=== PATIENT | female | born 1940 | race Caucasian/White ===

== ENCOUNTER 2016-08-13 14:25 | Observation (INO) | payer MEDICARE, BC ==
[~2016-08-13] VITALS: Ht 157.5 cm; Wt 71.1 kg
[2016-08-13] MEDS ORDERED: ONDANSETRON 4 MG INJ IV PRN (15:00)
--- NOTE | 2016-08-13 15:23 | HP ---
Date/Time of Note Date/Time of Note DATE: 08/13/16 TIME: 15:08 Assessment/Plan VTE Prophylaxis VTE Prophylaxis Intervention: ambulation, anti-embolic stocking VTE Contraindication Reason: refusal of treatment by patient Lines/Catheters Central line still needed: No Urinary Cath still in place: No Reason Cath still needed: other (indicate) (uti with difficulty to hold a urine.) Assessment/Plan Assessment/Plan 1.Dehydration 2.Diarrhea 3.Pancreatitis 4.nausea 5.Vomiting 6.Pancreatitis 7.Tachycardia 8.Dizziness 9.ALOC on and off 10.S/P recent travel to [facility] 11.Infected gingiva with no treatment and no dental work for now 12.UTI with Urinary incontinence 13.Very yellowish colored stool 14.S/P IV hydration at home with mild improvement of condition' 15.Dyslipidemia 16.PORTIA with pain 17. Osteoporosis with kyphosis 18.Anemia of chronic disease Cont'd Hospitalization Reason: as above. HPI/ROS Admit Date/Time Admit Date/Time Hx of Present Illness Nausea, vomiting with f/c x 6-7 days partial improvement after iv hydration at home. LAST 2 DAYS DIARRHEA GOT WORSE. Unable to eat. Unable to get up due to of dizziness. becoming more sleepy. Severe weaknes s with inablity to get up without help. IV's at home helped. Last 2 days got worse. Seen and evaluated in ER and organized direct admission. Discussed with the family at least 2 days of in hospital evaluation and Rx. ROS Subjective hx not possible: pt critical Constitutional: chills, disoriented, fatigue, nausea, poor po, weight change ( lost 4 lb.) Eyes: No discharge, No no complaints, No other, No pain, No redness, No visual change ENT: No bleeding, No congestion, No discharge, No dysphagia, No no complaints, No other, No pain, No sore throat Respiratory: cough, shortness of breath, No no complaints, No other, No pain, No pleuritic pain, No sputum, No wheezing Cardiovascular: lightheadedness, orthopenea, palpitations, No chest pain, No edema, No no complaints, No other, No paroxysmal nocturnal dyspnea Gastrointestinal: diarrhea, flatus, nausea, pain, passing stool (yellowish stool last 2 days.), vomiting Genitourinary: No bleeding, No discharge, No dysuria, No flank pain, No hematuria, No no complaints, No other Musculoskeletal: back pain, bone/joint pain, No neck pain, No no complaints, No other, No restricted range of motion, No swelling Skin: other (dry.), pruritis, No bruising, No erythema, No laceration, No no complaints, No rash, No skin lesions Neurologic: dizziness, headache, syncope (near syncopal epizodes.) Endocrine: dry skin, polydypsia, polyuria, temp intolerance (can't take po hilario fluids due to of nausea and vomiting.), No no complaints, No other, No weight change Lymphatic: No adenopathy, No lymphadema, No no complaints, No other, No tender nodes Psychological: anxiety, confusion (on and off.) Immunologic: pruritis PMH/Family/Social Past Medical History Medical History: angina, congestive heart failure, coronary artery disease, GERD, high cholesterol, hypertension, irritable bowel syndrome, pancreatitis, urinary tract infection Family History Significant Family History: heart disease Social History Alcohol Use: none Smoking Status: Current every day smoker Drug Use: none Exam/Review of Systems Exam Constitutional: alert, distress, oriented, other (weak with decreased voice and dizziness.), well developed Psych: anxiety, confusion (today after the profuse diarrhea become more sleppy.) Head: No atraumatic, No hematomas, No lacerations, No normocephalic, No other Eyes: EOMI, PERRL, nl lids, No fundi, disc, No icteric, No nl conjunctiva, No nl sclera, No other ENMT: nl nasal mucosa & septum, No intubated, No mucosa pink and moist, No nl external ears & nose, No nl lips & teeth, No other, No tympanic membranes Neck: nuchal rigidity, supple, No bruits, No jvd, No masses, No non-tender, No other, No thyromegaly Respiratory: clear to auscultation, diminished breath sounds, normal air movement, No congested cough, No crackles/rales, No intercostal retraction, No labored breathing, No other, No respirations, No tactile fremitus, No wheezing Cardiovascular: bruits, regular rate and rhythm, systolic murmur, No S3, No S4, No diastolic murmur, No edema, No gallop, No irregular rhythm, No jugular venous distention (JVD), No murmurs/extra sounds, No nl pulses, No other, No rub Gastrointestinal: bowel sounds (increased.), nl liver, spleen, tender Genitourinary - Female: other (not done.) Musculoskeletal: joint tenderness, muscle tone, muscle weakness, nl gait and stance (unstable gate. High risk for a fall.), range of motion Extremities: No calf tenderness, No clubbing, No cyanosis, No edema, No normal pulses, No other, No palpable cord, No pitting pedal edema, No tenderness Neurological: SERVICE WRITER ADVISOR II-XII intact (decreaed voice.), DTR's symmetric, confused , lethargic, numbness, No focal weakness, No nl mental status, No nl speech, No nl strength, No other, No reflexes, No unresponsive Skin: No diaphoresis, No ecchymosis, No laceration, No nl turgor, No other, No puncture, No rash or lesions Lymph: No enlarged, No nl lymph nodes, No nontender, No other MARIA E MAURO MD Aug 13, 2016 15:23
[2016-08-13 15:57] VITALS: BP 127/59; RESP 23
[2016-08-13 16:26] VITALS: Ht 157.5 cm; Wt 71.1 kg
[2016-08-13] MEDS ORDERED: SOD CHLORIDE 0.9% 500 ML IV ONE (17:00)
[2016-08-13] MEDS ORDERED: LEVOFLOXACIN 750MG/D5W (PMX) 150 ML IVPB SCH (17:00)
[2016-08-13 17:02] LABS: ADD SCAN DIFF NO
[2016-08-13 17:05] LABS: BASOPHILS % 0.3 % (0.0-2.0); EOSINOPHILS % 0.1 % (0.0-7.0); HEMATOCRIT 32.8 % (37.0-47.0); HEMOGLOBIN 10.8 g/dl (12.0-16.0); LYMPHOCYTES # 1.2 10^3/ul (0.8-2.9); MEAN CORPUSCULAR HEMOGLOBIN 30.3 pg (29.0-33.0); MEAN CORPUSCULAR HGB CONC 32.9 g/dl (32.0-37.0); MEAN CORPUSCULAR VOLUME 91.9 fl (82.0-101.0); MONOCYTES % 6.6 % (0.0-11.0); NEUTROPHIL # 12.6 10^3/ul (1.6-7.5); NEUTROPHILS % 84.4 % (39.0-77.0); PLATELET COUNT 315 10^3/UL (140-415); RED BLOOD COUNT 3.57 10^6/ul (4.20-5.40); RED CELL DISTRIBUTION WIDTH 12.7 % (11.5-14.5); WHITE BLOOD COUNT 14.9 10^3/ul (4.8-10.8)
[2016-08-13 17:31] LABS: ALANINE AMINOTRANSFERASE 28 IU/L (13-69); ALBUMIN 3.8 g/dl (3.3-4.9); ALBUMIN/GLOBULIN RATIO 1.22; ALKALINE PHOSPHATASE 104 IU/L (42-121); AMYLASE 52 U/L (11-123); ANION GAP 15 (8-16); ASPARTATE AMINO TRANSFERASE 20 IU/L (15-46); BILIRUBIN,INDIRECT 0.9 mg/dl (0-1.1); BILIRUBIN,TOTAL 0.9 mg/dl (0.2-1.3); BLOOD UREA NITROGEN 9 mg/dl (7-20); CALCIUM 8.9 mg/dl (8.4-10.2); CARBON DIOXIDE 30 mmol/L (21-31); CHLORIDE 99 mmol/L (97-110); CREATINE KINASE 48 IU/L (23-200); CREATININE 0.92 mg/dl (0.44-1.00); GLUCOSE 98 mg/dl (70-220); MAGNESIUM 1.7 mg/dl (1.7-2.5); POTASSIUM 3.5 mmol/L (3.5-5.1); SODIUM 140 mmol/L (135-144); TOTAL PROTEIN 6.9 g/dl (6.1-8.1)
[2016-08-13 17:32] LABS: IRON 13 ug/dl (35-150)
[2016-08-13 17:40] LABS: CK-MB 1.31 ng/ml (0.0-2.4)
[2016-08-13 17:41] LABS: TOTAL IRON BINDING CAPACITY 187 ug/dl (241-421)
--- NOTE | 2016-08-13 17:42 | RADRPT ---
PROCEDURE: XR Chest. CLINICAL INDICATION: Cough. TECHNIQUE: Single frontal view. COMPARISON: No prior study is available for comparison. FINDINGS: The lungs are clear. The heart size is normal. There is calcification in the aorta consistent with atherosclerosis. There is no pleural effusion. There is no pneumothorax. IMPRESSION: 1. Atherosclerosis. 2. Otherwise normal chest x-ray. RPTAT: QQ .Erwin Pritchard MD, MD Date Time Electronically viewed and signed by .Erwin Pritchard MD, MD on 08/13/2016 17:42 .R/
[2016-08-13] MEDS: PANTOPRAZOLE 40 MG INJ IV SCH (17:43)
[2016-08-13 17:47] LABS: TROPONIN-I < 0.012 ng/ml (0.00-0.12)
[2016-08-13 18:43] LABS: ADD UMIC YES; UR ASCORBIC ACID NEGATIVE (NEGATIVE); UR BACTERIA MODERATE /HPF (NONE SEEN); UR BILIRUBIN (Dip) NEGATIVE (NEGATIVE); UR BLOOD (Dip) 2+ mg/dL (NEGATIVE); UR CLARITY SLIGHTLY CLOUDY (CLEAR); UR COLOR YELLOW (YELLOW); UR GLUCOSE (Dip) NEGATIVE (NEGATIVE); UR KETONES (Dip) 1+ mg/dL (NEGATIVE); UR LEUKOCYTE ESTERASE (Dip) 2+ Leu/ul (NEGATIVE); UR MUCUS FEW /HPF (NONE SEEN); UR NITRITE (Dip) POSITIVE (NEGATIVE); UR RBC 34 /HPF (0-5); UR SPECIFIC GRAVITY (Dip) 1.011 (1.003-1.030); UR TOTAL PROTEIN (Dip) 1+ mg/dl (NEGATIVE); UR UROBILINOGEN (Dip) NEGATIVE (NEGATIVE)
[2016-08-13] MEDS ORDERED: TRAM50TA2 PO (18:58)
[2016-08-13] MEDS ORDERED: ALEN5TAB3 PO (18:59)
[2016-08-13] MEDS ORDERED: ATOR10TA65 PO (18:59)
[2016-08-13] MEDS ORDERED: LEVO300T PO (19:00)
[2016-08-13] MEDS ORDERED: ERGO400T4 PO (19:03)
[2016-08-13] MEDS ORDERED: AMLO1CAP8 PO (19:03)
[2016-08-13] MEDS ORDERED: FOLI0.8C PO (19:03)
[2016-08-13] MEDS ORDERED: MELO-109 PO (19:03)
--- NOTE | 2016-08-13 20:16 | RADRPT ---
PROCEDURE: CT Abdomen and Pelvis without contrast. CLINICAL INDICATION: Abdominal pain TECHNIQUE: CT scan of the abdomen and pelvis without contrast was performed on a multidetector hig h-resolution CT scanner. The patient was scanned without intravenous contrast. Coronal and sagittal reformatted images were obtained from the axial source images. Images were reviewed on a high-resol Jelastic PACS workstation. The total exam CTDI equals 13.65 mGy and the total exam DLP equals 689.11 mG y-cm. One or more of the following dose reduction techniques were used: Automated exposure control. Adjustment of the mA and/or kV according to patient size. Use of iterative reconstruction technique. COMPARISON: None FINDINGS: CT abdomen: The lung bases are clear. The heart size is normal, without pericardial thickening or effusion. Th e liver is normal in size and density without focal mass or intrahepatic biliary dilatation. The sp tigre is normal in size and homogeneous in density. The stomach is partially collapsed, but is gross ly unremarkable. The pancreas as visualized is normal. The gallbladder is remarkable for large rickey cified gallstones. There is no evidence for biliary dilatation. The adrenal glands are symmetric an d normal. The kidneys are normal in size. Symmetric perinephric fatty stranding is identified. The re is no urolithiasis. There are a few left parapelvic hypodense structures likely representing para pelvic cyst versus mild hydronephrosis. The aorta is of normal caliber. Aortic vascular calcifications are present. There is no retroperit bah lymphadenopathy. The mohsen hepatis region is clear. The bowel and mesentery, as visualized, are equally unremarkable. There is a small fat containing periumbilical hernia. CT pelvis: The small bowel loops situated within the pelvis are unremarkable. There is a normal appendix. The p elvic organs are normal. The pelvic sidewalls and inguinal regions are clear. The sigmoid colon an d rectum are unremarkable. No mass, lymphadenopathy, or free fluid is seen. No acute inflammation is seen. The surrounding osseous structures are remarkable for degenerative spondylosis of the spin e. No osteolytic or osteoblastic lesion is detected. IMPRESSION: The study is slightly limited due to significant motion artifacts. 1. No mass, lymphadenopathy, or focal acute inflammatory process is identified. 2. Cholelithiasis without evidence of acute cholecystitis. 3. Normal appendix. 4. Nonspecific bilateral perinephric fatty stranding. No urolithiasis. 5. Left parapelvic cyst versus mild left hydronephrosis. Ultrasound or CT urogram would be useful f or further evaluation. 6. Small fat containing periumbilical hernia. RPTAT: HHO .Angy Rg MD, Date Time Electronically viewed and signed by .Angy Rg MD, on 08/13/2016 20:16 .O/
[2016-08-13 20:26] VITALS: BP 131/65; RESP 20
[2016-08-14 02:01] VITALS: BP 107/54; RESP 20
[2016-08-14 07:59] VITALS: BP 119/57; RESP 21
--- NOTE | 2016-08-14 08:26 | PN ---
Date/Time of Note Date/Time of Note DATE: 08/14/16 TIME: 08:19 Assessment/Plan VTE Prophylaxis VTE Prophylaxis Intervention: ambulation, anti-embolic stocking VTE Contraindication Reason: peripheral vascular disease Lines/Catheters IV Catheter Type (from Nrs): Saline Lock Central line still needed: No Urinary Cath still in place: No Assessment/Plan Assessment/Plan Cholelithiasis umbilical hernia parapelvic cyst on the left on CT of the pelvis. Very low iron and low NG- supplement. Subjective 24 Hr Interval Summary Free Text/Dictation I feel better but still I am weak and i had 1 more episode of diarrhea. No nausea. Constitutional: chills, diaphoresis, improved, poor po, requiring IVF, requiring O2, No disoriented, No febrile, No no complaints, No other Eyes: No discharge, No no complaints, No other, No pain, No redness, No visual change ENT: No bleeding, No congestion, No discharge, No dysphagia, No no complaints, No other, No pain, No sore throat Respiratory: cough, shortness of breath, No no complaints, No other, No pain, No pleuritic pain, No sputum, No wheezing Cardiovascular: lightheadedness, palpitations, No chest pain, No edema, No no complaints, No orthopenea, No other, No paroxysmal nocturnal dyspnea Gastrointestinal: diarrhea, flatus, nausea, pain, passing stool, vomiting, No blood, No constipation, No decreased appetite, No no complaints, No other Genitourinary: dysuria, No bleeding, No discharge, No flank pain, No hematuria, No no complaints, No other Musculoskeletal: back pain, bone/joint pain Exam/Review of Systems Vital Signs Vitals Vital Signs Date Time Temp Pulse Resp B/P Pulse Ox O2 Delivery O2 Flow Rate FiO2 08/14/16 07:59 98.4 75 21 119/57 94 Intake and Output 08/13/16 08/13/16 08/14/16 15:00 23:00 07:00 Intake Total 650 ml 600 ml Balance 650 ml 600 ml Exam Constitutional: alert, distress, frail, oriented, No non-verbal, No obese, No other, No well developed Psych: anxiety, confusion, depression, No nl mood/affect, No no complaints, No other, No suicidal Head: atraumatic, normocephalic, No hematomas, No lacerations, No other Eyes: EOMI, PERRL (pale conjunctivas.) Neck: bruits, nuchal rigidity, No jvd, No masses, No non-tender, No other, No supple, No thyromegaly Respiratory: diminished breath sounds, normal air movement, No clear to auscultation, No congested cough, No crackles/rales, No intercostal retraction, No labored breathing, No other, No respirations, No tactile fremitus, No wheezing Cardiovascular: bruits, murmurs/extra sounds, regular rate and rhythm, systolic murmur, No S3, No S4, No diastolic murmur, No edema, No gallop, No irregular rhythm, No jugular venous distention (JVD), No nl pulses, No other, No rub Gastrointestinal: bowel sounds (increased; periumbilical hernia.), distended , rebound or guarding, tender, No ascites, No firm, No hepatomegaly, No mass, No nl liver, spleen, No non- tender, No other, No soft, No splenomegaly, No surgical scars Genitourinary - Female: CVA tenderness, No CMT, No nl adnexae, No nl external genitalia, No other, No uterus Musculoskeletal: joint tenderness, muscle tone, muscle weakness, No nl extremities to inspection, No nl gait and stance, No other, No range of motion, No spine non-tender, No swelling 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 (decreased hearing.), DTR's symmetric, lethargic, numbness, reflexes Skin: ecchymosis, rash or lesions, No diaphoresis, No laceration, No nl turgor, No other, No puncture Results Result Diagram: 08/13/16165408/[id number] Results 24 hrs Laboratory Tests Test 08/13/16 16:55 08/13/16 18:00 White Blood Count 14.9 H Red Blood Count 3.57 L Hemoglobin 10.8 L Hematocrit 32.8 L Mean Corpuscular Volume 91.9 Mean Corpuscular Hemoglobin 30.3 Mean Corpuscular Hemoglobin Concent 32.9 Red Cell Distribution Width 12.7 Platelet Count 315 Mean Platelet Volume 10.0 Neutrophils % 84.4 H Lymphocytes % 8.0 L Monocytes % 6.6 Eosinophils % 0.1 Basophils % 0.3 Nucleated Red Blood Cells % 0.0 Neutrophils # 12.6 H Lymphocytes # 1.2 Monocytes # 1.0 H Eosinophils # 0.0 Basophils # 0.0 Nucleated Red Blood Cells # 0.0 Sodium Level 140 Potassium Level 3.5 Chloride Level 99 Carbon Dioxide Level 30 Anion Gap 15 Blood Urea Nitrogen 9 Creatinine 0.92 Glucose Level 98 Calcium Level 8.9 Magnesium Level 1.7 Iron Level 13 L Total Iron Binding Capacity 187 L Percent Iron Saturation 7 L Total Bilirubin 0.9 Direct Bilirubin 0.00 Indirect Bilirubin 0.9 Aspartate Amino Transf (AST/SGOT) 20 Alanine Aminotransferase (ALT/SGPT) 28 Alkaline Phosphatase 104 Creatine Kinase 48 Creatine Kinase Index 2.7 Creatinine Kinase MB (Mass) 1.31 Troponin I < 0.012 Total Protein 6.9 Albumin 3.8 Globulin 3.10 Albumin/Globulin Ratio 1.22 Amylase Level 52 Lipase 27 Urine Color YELLOW Urine Clarity SLIGHTLY CLOUDY A Urine pH 6.0 Urine Specific [place] 1.011 Urine Ketones 1+ H Urine Nitrite POSITIVE A Urine Bilirubin NEGATIVE Urine Urobilinogen NEGATIVE Urine Leukocyte Esterase 2+ H Urine Microscopic RBC 34 H Urine Microscopic WBC 168 H Urine Bacteria MODERATE Urine Mucus FEW A Urine Hemoglobin 2+ H Urine Glucose NEGATIVE Urine Total Protein 1+ H Medications Medications Current Medications Pantoprazole (Protonix Iv) 40 mg DAILY IV Last administered on 08/13/16t 17:43; Admin Dose 40 MG; Start 08/13/16 at 17:00 Ondansetron HCl 4 mg 4 mg Q6H PRN IV NAUSEA AND/OR VOMITING; Start 08/13/16 at 15:00 Levofloxacin/ Dextrose (Levaquin 750 Mg/ D5W 150 ml (Pmx)) 150 ml @ 100 mls/hr Q48H IVPB ; Start 08/15/16 at 18:00 MARIA E MAURO MD Aug 14, 2016 08:25
[2016-08-14] MEDS ORDERED: MAGNESIUM SULFATE 2 GM/50 ML 50 ML IVPB SCH (08:30)
[2016-08-14] MEDS: SOD FERRIC GLUC COMPLX 125 MG in SOD CHLORIDE 0.9% 100 ML IVPB SCH (08:30)
[2016-08-14] MEDS ORDERED: POTASSIUM CHLORIDE 50 ML IVPB ONE (08:30)
[2016-08-14] MEDS: PANTOPRAZOLE 40 MG INJ IV SCH (09:00)
--- NOTE | 2016-08-14 13:47 | RADRPT ---
Vent Rate: 75 bpm RR Interval: 0 msec UT Interval: 142 msec QRS Duration: 82 msec QT Interval: 380 msec QTC Interval: 424 msec P-R-T [place]: 42 - 53 - 60 degrees Normal sinus rhythm Cannot rule out Anterior infarct , age undetermined Abnormal ECG Electronically Signed By: Kamron Mendez [id number]
[2016-08-14 21:26] VITALS: BP 114/57; RESP 16
[2016-08-15 03:07] VITALS: BP 126/59; RESP 18
[2016-08-15 05:54] LABS: ADD SCAN DIFF NO
[2016-08-15 05:58] LABS: BASOPHILS % 0.2 % (0.0-2.0); EOSINOPHILS # 0.1 10^3/ul (0.0-0.5); HEMATOCRIT 30.7 % (37.0-47.0); HEMOGLOBIN 9.9 g/dl (12.0-16.0); LYMPHOCYTES # 1.4 10^3/ul (0.8-2.9); LYMPHOCYTES % 15.4 % (15.0-51.0); MEAN CORPUSCULAR HEMOGLOBIN 29.9 pg (29.0-33.0); MEAN CORPUSCULAR HGB CONC 32.2 g/dl (32.0-37.0); MEAN CORPUSCULAR VOLUME 92.7 fl (82.0-101.0); MEAN PLATELET VOLUME 10.2 fl (7.4-10.4); MONOCYTE # 0.8 10^3/ul (0.3-0.9); MONOCYTES % 8.4 % (0.0-11.0); NEUTROPHIL # 6.9 10^3/ul (1.6-7.5); NEUTROPHILS % 74.1 % (39.0-77.0); PLATELET COUNT 330 10^3/UL (140-415); RED BLOOD COUNT 3.31 10^6/ul (4.20-5.40); RED CELL DISTRIBUTION WIDTH 12.9 % (11.5-14.5); WHITE BLOOD COUNT 9.3 10^3/ul (4.8-10.8)
[2016-08-15 06:20] LABS: ALBUMIN 3.4 g/dl (3.3-4.9); ALBUMIN/GLOBULIN RATIO 1.17; CALCIUM 8.2 mg/dl (8.4-10.2); CREATININE 0.83 mg/dl (0.44-1.00); TOTAL PROTEIN 6.3 g/dl (6.1-8.1)
[2016-08-15 06:58] LABS: BILIRUBIN,INDIRECT 0.6 mg/dl (0-1.1); BILIRUBIN,TOTAL 0.6 mg/dl (0.2-1.3)
[2016-08-15] MEDS: PANTOPRAZOLE (EC) 40 MG TAB PO SCH (07:13)
[2016-08-15 07:56] VITALS: BP 124/61; RESP 20
--- NOTE | 2016-08-15 08:11 | PN ---
Date/Time of Note Date/Time of Note DATE: 08/15/16 TIME: 08:06 Assessment/Plan VTE Prophylaxis VTE Prophylaxis Intervention: ambulation, anti-embolic stocking Lines/Catheters IV Catheter Type (from Nrsg): Peripheral IV Central line still needed: No Urinary Cath still in place: No Assessment/Plan Assessment/Plan 1.hypokalemia- supplement. 2.Diarrhea-persists 3.Pancreatitis-lipase negative 4.nausea-controlled 5.Dehydration- Vomiting controlled 6.Pancreatitis 7.Tachycardia 8.Dizziness 9.ALOC on and off 10.S/P recent travel to [facility] 11.Infected gingiva with no treatment and no dental work for now 12.UTI with Urinary incontinence 13.Very yellowish colored stool 14.S/P IV hydration at home with mild improvement of condition' 15.Dyslipidemia 16.PORTIA with pain 17. Osteoporosis with kyphosis 18.Anemia of chronic disease Cont'd Hospitalization Reason: as above. Subjective 24 Hr Interval Summary Free Text/Dictation The first day I was able to eat little bit. I still have a diarrhea. I can't get up without help. Constitutional: chills, poor po, requiring IVF, requiring O2, No diaphoresis, No disoriented, No febrile, No improved, No no complaints, No other Eyes: No discharge, No no complaints, No other, No pain, No redness, No visual change ENT: No bleeding, No congestion, No discharge, No dysphagia, No no complaints, No other, No pain, No sore throat Respiratory: shortness of breath, No cough, No no complaints, No other, No pain, No pleuritic pain, No sputum, No wheezing Cardiovascular: lightheadedness, orthopenea, palpitations, No chest pain, No edema, No no complaints, No other, No paroxysmal nocturnal dyspnea Gastrointestinal: diarrhea, flatus, nausea, pain, passing stool Genitourinary: No bleeding, No discharge, No dysuria, No flank pain, No hematuria, No no complaints, No other Musculoskeletal: back pain, bone/joint pain, No neck pain, No no complaints, No other, No restricted range of motion, No swelling Exam/Review of Systems Vital Signs Vitals Vital Signs Date Time Temp Pulse Resp B/P Pulse Ox O2 Delivery O2 Flow Rate FiO2 08/15/16 07:56 98.3 71 20 124/61 95 Intake and Output 08/14/16 08/14/16 08/15/16 15:00 23:00 07:00 Intake Total 110 ml 890 ml 680 ml Balance 110 ml 890 ml 680 ml Exam Constitutional: alert, distress, oriented, No frail, No non-verbal, No obese, No other, No well developed Psych: anxiety, No confusion, No depression, No nl mood/affect, No no complaints, No other, No suicidal Head: No atraumatic, No hematomas, No lacerations, No normocephalic, No other Eyes: EOMI, nl lids, No PERRL, No fundi, disc, No icteric, No nl conjunctiva, No nl sclera, No other ENMT: No intubated, No mucosa pink and moist, No nl external ears & nose, No nl lips & teeth, No nl nasal mucosa & septum, No other, No tympanic membranes Neck: bruits, supple, No jvd, No masses, No non-tender, No nuchal rigidity, No other, No thyromegaly Respiratory: diminished breath sounds, No clear to auscultation, No congested cough, No crackles/rales, No intercostal retraction, No labored breathing, No normal air movement, No other, No respirations, No tactile fremitus, No wheezing Cardiovascular: bruits, systolic murmur, No S3, No S4, No diastolic murmur, No edema, No gallop, No irregular rhythm, No jugular venous distention (JVD), No murmurs/extra sounds, No nl pulses, No other, No regular rate and rhythm, No rub Gastrointestinal: bowel sounds (incrfeased.), non-tender, soft, No ascites, No distended, No firm, No hepatomegaly, No mass, No nl liver, spleen, No other, No rebound or guarding, No splenomegaly, No surgical scars, No tender Genitourinary - Female: No CMT, No CVA tenderness, No nl adnexae, No nl external genitalia, No other, No uterus Musculoskeletal: joint tenderness, muscle tone, muscle weakness Extremities: No calf tenderness, No clubbing, No cyanosis, No edema, No normal pulses, No other, No palpable cord, No pitting pedal edema, No tenderness Neurological: lethargic (severe weakness.), numbness, 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, No DTR's symmetric, No confused, No focal weakness, No nl mental status, No nl speech, No nl strength, No other, No reflexes, No unresponsive Results Result Diagram: 08/15/16 0545 08/15/16 0545 Results 24 hrs Laboratory Tests Test 08/15/16 05:45 White Blood Count 9.3 # Red Blood Count 3.31 L Hemoglobin 9.9 L Hematocrit 30.7 L Mean Corpuscular Volume 92.7 Mean Corpuscular Hemoglobin 29.9 Mean Corpuscular Hemoglobin Concent 32.2 Red Cell Distribution Width 12.9 Platelet Count 330 Mean Platelet Volume 10.2 Neutrophils % 74.1 Lymphocytes % 15.4 Monocytes % 8.4 Eosinophils % 1.0 Basophils % 0.2 Nucleated Red Blood Cells % 0.0 Neutrophils # 6.9 Lymphocytes # 1.4 Monocytes # 0.8 Eosinophils # 0.1 Basophils # 0.0 Nucleated Red Blood Cells # 0.0 Sodium Level 138 Potassium Level 3.0 L Chloride Level 100 Carbon Dioxide Level 32 H Anion Gap 9 # Blood Urea Nitrogen 11 Creatinine 0.83 Glucose Level 100 Calcium Level 8.2 L Total Bilirubin 0.6 Direct Bilirubin 0.00 Indirect Bilirubin 0.6 Aspartate Amino Transf (AST/SGOT) 16 Alanine Aminotransferase (ALT/SGPT) 30 Alkaline Phosphatase 88 Total Protein 6.3 Albumin 3.4 Globulin 2.90 Albumin/Globulin Ratio 1.17 Thyroid Stimulating Hormone (TSH) 4.340 Medications Medications Current Medications Ondansetron HCl 4 mg 4 mg Q6H PRN IV NAUSEA AND/OR VOMITING; Start 08/13/16 at 15:00 Levofloxacin/ Dextrose 150 ml @ 100 mls/hr Q48H IVPB ; Start 08/15/16 at 18:00 Ferric Sodium Gluconate Complex 125 mg/Sodium Chloride 110 ml @ 110 mls/hr Q24H IVPB Last administered on 08/14/16 08:30; Admin Dose 110 MLS/HR; Start at 08:30; Stop 08/18/16 at 09:29 Magnesium Sulfate (Magnesium Sulfate 2 Gm/50 ml) 50 ml @ 25 mls/hr ONCE IVPB Last administered on 08/14/16 13:34; Admin Dose 25 MLS/HR; Start 08/14/16 at 08 :30; Stop 08/17/16 at 09:00 Pantoprazole (Protonix Tab) 40 mg DAILY@06 PO Last administered on 08/15/16t 07 :13; Admin Dose 40 MG; Start 08/15/16 at 06:00 MARIA E MAURO MD Aug 15, 2016 08:11
[2016-08-15] MEDS: SOD FERRIC GLUC COMPLX 125 MG in SOD CHLORIDE 0.9% 100 ML IVPB SCH (09:17)
[2016-08-15] MEDS: POTASSIUM CHLORIDE 50 ML IVPB SCH ×3 (10:45→14:26)
[2016-08-15] MEDS: MAGNESIUM SULFATE 2 GM/50 ML 50 ML IVPB SCH (16:25)
[2016-08-15] MEDS ORDERED: LEVOFLOXACIN 750MG/D5W (PMX) 150 ML IVPB SCH (18:00)
[2016-08-15] MEDS: PIPER-TAZO 3.375 GM IV (PMX) 100 ML IVPB SCH (18:53)
[2016-08-15 19:49] VITALS: BP 123/62; RESP 20
[2016-08-16] MEDS: PIPER-TAZO 3.375 GM IV (PMX) 100 ML IVPB SCH ×4 (00:35→22:44)
[2016-08-16] MEDS: PANTOPRAZOLE (EC) 40 MG TAB PO SCH (06:38)
[2016-08-16 07:28] LABS: ADD SCAN DIFF NO
[2016-08-16 07:32] LABS: BASOPHILS % 0.5 % (0.0-2.0); EOSINOPHILS # 0.1 10^3/ul (0.0-0.5); EOSINOPHILS % 1.6 % (0.0-7.0); HEMATOCRIT 31.4 % (37.0-47.0); HEMOGLOBIN 10.1 g/dl (12.0-16.0); LYMPHOCYTES # 1.9 10^3/ul (0.8-2.9); LYMPHOCYTES % 21.9 % (15.0-51.0); MEAN CORPUSCULAR HEMOGLOBIN 29.8 pg (29.0-33.0); MEAN CORPUSCULAR HGB CONC 32.2 g/dl (32.0-37.0); MEAN CORPUSCULAR VOLUME 92.6 fl (82.0-101.0); MEAN PLATELET VOLUME 10.3 fl (7.4-10.4); MONOCYTE # 0.6 10^3/ul (0.3-0.9); MONOCYTES % 7.1 % (0.0-11.0); PLATELET COUNT 362 10^3/UL (140-415); RED BLOOD COUNT 3.39 10^6/ul (4.20-5.40); RED CELL DISTRIBUTION WIDTH 13.2 % (11.5-14.5); WHITE BLOOD COUNT 8.9 10^3/ul (4.8-10.8)
[2016-08-16 07:51] LABS: ALBUMIN 3.3 g/dl (3.3-4.9); ALBUMIN/GLOBULIN RATIO 1.03; BILIRUBIN,INDIRECT 0.5 mg/dl (0-1.1); BILIRUBIN,TOTAL 0.5 mg/dl (0.2-1.3); CALCIUM 8.6 mg/dl (8.4-10.2); CREATININE 0.85 mg/dl (0.44-1.00); POTASSIUM 3.3 mmol/L (3.5-5.1); TOTAL PROTEIN 6.5 g/dl (6.1-8.1)
[2016-08-16 08:11] VITALS: BP 142/60; RESP 18
[2016-08-16] MEDS ORDERED: POTASSIUM CHLORIDE (SR) 20 MEQ TAB PO STA (09:04)
--- NOTE | 2016-08-16 09:06 | PN ---
Date/Time of Note Date/Time of Note DATE: 08/16/16 TIME: 08:59 Assessment/Plan VTE Prophylaxis VTE Prophylaxis Intervention: ambulation, anti-embolic stocking VTE Contraindication Reason: peripheral vascular disease Lines/Catheters IV Catheter Type (from Nrsg): [place] line still needed: No Urinary Cath still in place: No Reason Cath still needed: urinary retention Assessment/Plan Assessment/Plan 1.hypokalemia- continue iv and p.o. supplement. 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 Subjective 24 Hr Interval Summary Free Text/Dictation No diarrhea. Very weak. Unable to stand up even with the help of the daughter. no f/c. nauseas. No vomiting. No bm. Constitutional: disoriented, improved, poor po, requiring IVF, requiring O2, No chills, No diaphoresis, No febrile, No no complaints, No other Eyes: No discharge, No no complaints, No other, No pain, No redness, No visual change ENT: No bleeding, No congestion, No discharge, No dysphagia, No no complaints, No other, No pain, No sore throat Respiratory: No cough, No no complaints, No other, No pain, No pleuritic pain, No shortness of breath, No sputum, No wheezing Cardiovascular: chest pain, lightheadedness, orthopenea, palpitations, paroxysmal nocturnal dyspnea, No edema, No no complaints, No other Gastrointestinal: nausea, No blood, No constipation, No decreased appetite, No diarrhea, No flatus, No no complaints, No other, No pain, No passing stool, No vomiting Genitourinary: dysuria, flank pain, No bleeding, No discharge, No hematuria, No no complaints, No other Musculoskeletal: back pain, bone/joint pain, neck pain, No no complaints, No other, No restricted range of motion, No swelling Neurologic: dizziness, headache Exam/Review of Systems Vital Signs Vitals Vital Signs Date Time Temp Pulse Resp B/P Pulse Ox O2 Delivery O2 Flow Rate FiO2 08/16/16 08:11 98.3 70 18 142/60 94 Intake and Output 08/15/16 08/15/16 08/16/16 15:00 23:00 07:00 Intake Total 1320 ml Balance 1320 ml Exam Constitutional: alert, distress, frail, oriented, well developed, No non-verbal, No obese, No other Psych: anxiety, confusion, depression, No nl mood/affect, No no complaints, No other, No suicidal Head: atraumatic, No hematomas, No lacerations, No normocephalic, No other Eyes: EOMI, PERRL, nl lids, No fundi, disc, No icteric, No nl conjunctiva, No nl sclera, No other ENMT: No intubated, No mucosa pink and moist, No nl external ears & nose, No nl lips & teeth, No nl nasal mucosa & septum, No other, No tympanic membranes Neck: bruits, nuchal rigidity, No jvd, No masses, No non-tender, No other, No supple, No thyromegaly Respiratory: diminished breath sounds, respirations, No clear to auscultation, No congested cough, No crackles/rales, No intercostal retraction, No labored breathing, No normal air movement, No other, No tactile fremitus, No wheezing Cardiovascular: bruits, systolic murmur, No S3, No S4, No diastolic murmur, No edema, No gallop, No irregular rhythm, No jugular venous distention (JVD), No murmurs/extra sounds, No nl pulses, No other, No regular rate and rhythm, No rub Gastrointestinal: bowel sounds, distended, nl liver, spleen, soft, No ascites, No firm, No hepatomegaly, No mass, No non-tender, No other, No rebound or guarding, No splenomegaly, No surgical scars, No tender Genitourinary - Female: CVA tenderness, No CMT, No nl adnexae, No nl external genitalia, No other, No uterus Musculoskeletal: joint tenderness, muscle tone, No muscle weakness, No nl extremities to inspection, No nl gait and stance, No other, No range of motion, No spine non-tender, No swelling Extremities: normal pulses, No calf tenderness, No clubbing, No cyanosis, No edema, No other, No palpable cord, No pitting pedal edema, No tenderness Neurological: LEAN SPECIALIST II-XII intact, lethargic, nl speech, numbness, No DTR's symmetric, No confused, No focal weakness, No nl mental status, No nl strength, No other, No reflexes, No unresponsive Skin: diaphoresis, ecchymosis Results Result Diagram: 08/16/16 0700 08/16/16 0700 Results 24 hrs Laboratory Tests Test 08/16/16 07:00 White Blood Count 8.9 Red Blood Count 3.39 L Hemoglobin 10.1 L Hematocrit 31.4 L Mean Corpuscular Volume 92.6 Mean Corpuscular Hemoglobin 29.8 Mean Corpuscular Hemoglobin Concent 32.2 Red Cell Distribution Width 13.2 Platelet Count 362 Mean Platelet Volume 10.3 Neutrophils % 68.0 Lymphocytes % 21.9 Monocytes % 7.1 Eosinophils % 1.6 Basophils % 0.5 Nucleated Red Blood Cells % 0.0 Neutrophils # 6.0 Lymphocytes # 1.9 Monocytes # 0.6 Eosinophils # 0.1 Basophils # 0.0 Nucleated Red Blood Cells # 0.0 Sodium Level 135 Potassium Level 3.3 L Chloride Level 100 Carbon Dioxide Level 32 H Anion Gap 6 L Blood Urea Nitrogen 13 Creatinine 0.85 Glucose Level 97 Calcium Level 8.6 Total Bilirubin 0.5 Direct Bilirubin 0.00 Indirect Bilirubin 0.5 Aspartate Amino Transf (AST/SGOT) 32 Alanine Aminotransferase (ALT/SGPT) 27 Alkaline Phosphatase 125 H Total Protein 6.5 Albumin 3.3 Globulin 3.20 Albumin/Globulin Ratio 1.03 Medications Medications Current Medications Ondansetron HCl 4 mg 4 mg Q6H PRN IV NAUSEA AND/OR VOMITING; Start 08/13/16 at 15:00 Ferric Sodium Gluconate Complex/ Sodium Chloride (Ferrlecit/NS) 110 ml @ 110 mls/hr Q24H IVPB Last administered on 08/15/16 09:17; Admin Dose 110 MLS/HR; Start 08/14/16 at 08:30; Stop 08/18/16 at 09:29 Pantoprazole 40 mg 40 mg DAILY@06 PO Last administered on 08/16/16 06:38; Admin Dose 40 MG; Start 08/15/16 at 06:00 Magnesium Sulfate 50 ml @ 25 mls/hr DAILY IVPB Last administered on 08/15/16 16:25; Admin Dose 25 MLS/HR; Start 08/15/16 at 10:00 Piperacillin Sod/ Tazobactam Sod (Zosyn 3.375gm/ 100 ml (Pmx)) 100 ml @ 200 mls /hr Q8 IVPB Last administered on 08/16/16 06:38; Admin Dose 200 MLS/HR; Start 08/15/16 at 18:00 MARIA E MAURO MD Aug 16, 2016 09:06
[2016-08-16] MEDS: SOD FERRIC GLUC COMPLX 125 MG in SOD CHLORIDE 0.9% 100 ML IVPB SCH (09:12)
[2016-08-16] MEDS ORDERED: POTASSIUM CHLORIDE 20 MEQ in SOD CHLORIDE 0.9% 100 ML IVPB ONE (10:30)
[2016-08-16] MEDS: MAGNESIUM SULFATE 2 GM/50 ML 50 ML IVPB SCH (10:43)
[2016-08-16 21:06] VITALS: BP 130/63; RESP 16
--- NOTE | 2016-08-16 23:47 | RADRPT ---
PROCEDURE: US DVT. CLINICAL INDICATION: Right upper extremity redness and pain. TECHNIQUE: Multiple longitudinal and transverse images of the right upper extremity veins were obt ained with jaramillo scale and color Doppler imaging. 2D grayscale measurements with compression, color Doppler flow, and augmentation was performed. COMPARISON: No prior studies are available for comparison. FINDINGS: The right internal jugular, subclavian, axillary, brachial, basilic, cubital, radial, ulnar, and bas ilic veins are patent. There is occlusive thrombus in the proximal to mid forearm cephalic vein. IMPRESSION: 1. No right upper extremity DVT. 2. Occlusive thrombus in the proximal to mid forearm cephalic vein. RPTAT: HTAR .Kvng Thomas MD, MD Date Time Electronically viewed and signed by .Kvng Thomas MD, MD on 08/16/2016 23:47 .R/
[2016-08-17 02:00] VITALS: BP 139/99; RESP 18
[2016-08-17 02:09] LABS: ADD UMIC YES; UR ASCORBIC ACID NEGATIVE (NEGATIVE); UR BILIRUBIN (Dip) NEGATIVE (NEGATIVE); UR BLOOD (Dip) 2+ mg/dL (NEGATIVE); UR CLARITY CLEAR (CLEAR); UR COLOR YELLOW (YELLOW); UR GLUCOSE (Dip) NEGATIVE (NEGATIVE); UR KETONES (Dip) NEGATIVE (NEGATIVE); UR LEUKOCYTE ESTERASE (Dip) 1+ Leu/ul (NEGATIVE); UR NITRITE (Dip) NEGATIVE (NEGATIVE); UR RBC 15 /HPF (0-5); UR SPECIFIC GRAVITY (Dip) 1.011 (1.003-1.030); UR TOTAL PROTEIN (Dip) NEGATIVE (NEGATIVE); UR UROBILINOGEN (Dip) NEGATIVE (NEGATIVE)
[2016-08-17] MEDS: PIPER-TAZO 3.375 GM IV (PMX) 100 ML IVPB SCH (06:11)
[2016-08-17] MEDS: PANTOPRAZOLE (EC) 40 MG TAB PO SCH (06:11)
[2016-08-17] MEDS ORDERED: ACETAMINOPHEN 325 MG TAB PO PRN (07:00)
[2016-08-17 07:26] VITALS: BP 123/66; RESP 24
[2016-08-17 08:33] LABS: ADD SCAN DIFF NO
[2016-08-17 08:42] LABS: BASOPHIL # 0.1 10^3/ul (0.0-0.1); BASOPHILS % 0.5 % (0.0-2.0); EOSINOPHILS # 0.1 10^3/ul (0.0-0.5); EOSINOPHILS % 1.2 % (0.0-7.0); HEMATOCRIT 34.8 % (37.0-47.0); HEMOGLOBIN 10.7 g/dl (12.0-16.0); LYMPHOCYTES % 20.6 % (15.0-51.0); MEAN CORPUSCULAR HEMOGLOBIN 28.9 pg (29.0-33.0); MEAN CORPUSCULAR HGB CONC 30.7 g/dl (32.0-37.0); MEAN CORPUSCULAR VOLUME 94.1 fl (82.0-101.0); MEAN PLATELET VOLUME 10.4 fl (7.4-10.4); MONOCYTE # 0.6 10^3/ul (0.3-0.9); MONOCYTES % 6.6 % (0.0-11.0); NEUTROPHIL # 6.6 10^3/ul (1.6-7.5); NEUTROPHILS % 69.8 % (39.0-77.0); PLATELET COUNT 406 10^3/UL (140-415); RED CELL DISTRIBUTION WIDTH 13.2 % (11.5-14.5); WHITE BLOOD COUNT 9.5 10^3/ul (4.8-10.8)
[2016-08-17] MEDS ORDERED: ACET325T40 PO (08:46)
[2016-08-17] MEDS ORDERED: RIVA10TA PO (08:46)
--- NOTE | 2016-08-17 08:50 | PDOCDIS ---
Discharge Instructions DIAGNOSIS Discharge Diagnosis 1.Dehydration 2.Diarrhea 3.Pancreatitis 4.nausea 5.Vomiting 6.Pancreatitis 7.Tachycardia 8.Dizziness 9.ALOC on and off 10.S/P recent travel to [facility] 11.Infected gingiva with no treatment and no dental work for now 12.UTI with Urinary incontinence 13.Very yellowish colored stool 14.S/P IV hydration at home with mild improvement of condition' 15.Dyslipidemia 16.PORTIA with pain 17. Osteoporosis with kyphosis 18.Anemia of chronic disease CONDITION Patient Condition: Fair HOME CARE INSTRUCTIONS: Diet Instructions: Reduced SodiumSpecial Diet: regular ACTIVITY: Activity Restrictions: Do not Drive Avoid Heavy Housework Weight Bearing Bathing Restrictions: Shower FOLLOW UP/APPOINTMENTS Follow-up Plan rtc in 5 days to . SCHOOL/WORK RELEASE May return to School/Work with: home rest. MARIA E MAURO MD Aug 17, 2016 08:49
--- NOTE | 2016-08-17 08:52 | DS ---
Date/Time of Note Date/Time of Note DATE: 08/17/16 TIME: 08:50 Discharge Summary Admission/Discharge Info Admit Date/Time Aug 15, 2016 at 10:41 Discharge Date/Time Discharge Diagnosis 1.Dehydration 2.Diarrhea 3.Pancreatitis 4.nausea 5.Vomiting 6.Pancreatitis 7.Tachycardia 8.Dizziness 9.ALOC on and off 10.S/P recent travel to [facility] 11.Infected gingiva with no treatment and no dental work for now 12.UTI with Urinary incontinence 13.Very yellowish colored stool 14.S/P IV hydration at home with mild improvement of condition' 15.Dyslipidemia 16.PORTIA with pain 17. Osteoporosis with kyphosis 18.Anemia of chronic disease Patient Condition: Good Hx of Present Illness Nausea, vomiting with f/c x 6-7 days partial improvement after iv hydration at home. LAST 2 DAYS DIARRHEA GOT WORSE. Unable to eat. Unable to get up due to of dizziness. becoming more sleepy. Severe weaknes s with inablity to get up without help. IV's at home helped. Last 2 days got worse. Seen and evaluated in ER and organized direct admission. Discussed with the family at least 2 days of in hospital evaluation and Rx. Hospital Course She become hypokalemic, hypomagnesemic and had low iron level. Corected and will be cont. as outpatient. Left basilic vein thrombosis was detected. Xarelto will be continued. Home Meds Active Scripts Rivaroxaban* (Xarelto*) 10 Mg Tablet, 10 MG PO DAILY for 30 Days, #30 TAB Prov:MARTINA MAURO MD 08/17/16 Acetaminophen (MAPAP) 325 Mg Tablet, 650 MG PO Q6H Y for PAIN AND OR ELEVATED TEMP for 30 Days, #60 TAB Prov:MARTINA MAURO MD 08/17/16 Reported Medications Amlodipine Besylate/Benazepril (Amlodipine-Benazepril 5-10 mg) 1 Each Capsule, 1 EACH PO, CAP 08/13/16 Ergocalciferol (Vitamin D2) 400 Unit Tablet, 1.25 UNIT PO weekly, TAB 08/13/16 Folic Acid (Folic Acid) 0.8 Mg Capsule, 1 MG PO, CAP 08/13/16 Meloxicam* (Meloxicam*) 7.5 Mg Tablet, 7.5 MG PO DAILY, #30 TAB 08/13/16 Levothyroxine Sodium (Levothyroxine Sodium) 300 Mcg Tablet, 50 MCG PO BEFORE BREAKFAST, #30 TAB 08/13/16 Atorvastatin (Atorvastatin) 10 Mg Tablet, 20 MG PO QHS, #30 TAB 08/13/16 Alendronate Sodium* (Alendronate Sodium*) 5 Mg Tablet, 70 MG PO week, #30 TAB 08/13/16 Tramadol HCl (Tramadol HCl) 50 Mg Tablet, 50 MG PO TID Y for PAIN, #120 TAB 08/13/16 Primary Care Provider Martina Mauro MD Time spent on discharge: > 30 minutes Pending Labs Laboratory Tests Test 08/16/16 23:45 Urine Color YELLOW (YELLOW) Urine Clarity CLEAR (CLEAR) Urine pH 6.0 (5.0-9.0) Urine Specific [place] 1.011 (1.003-1.030) Urine Ketones NEGATIVEmg/dL (NEGATIVE) Urine Nitrite NEGATIVEmg/dL (NEGATIVE) Urine Bilirubin NEGATIVEmg/dL (NEGATIVE) Urine Urobilinogen NEGATIVEmg/dL (NEGATIVE) Urine Leukocyte Esterase 1+Federico/ul (NEGATIVE) Urine Microscopic RBC 15/HPF (0-5) Urine Microscopic WBC 10/HPF (0-5) Urine Hemoglobin 2+mg/dL (NEGATIVE) Urine Glucose NEGATIVEmg/dL (NEGATIVE) Urine Total Protein NEGATIVEmg/dl (NEGATIVE) MARTINA MAURO MD Aug 17, 2016 08:52
[2016-08-17] MEDS ORDERED: RIVAROXABAN 10 MG TABLET PO SCH (09:00)
[2016-08-17 09:17] LABS: IRON 41 ug/dl (35-150)
[2016-08-17 09:21] LABS: ALBUMIN 3.9 g/dl (3.3-4.9); ALBUMIN/GLOBULIN RATIO 1.14; BILIRUBIN,INDIRECT 0.5 mg/dl (0-1.1); BILIRUBIN,TOTAL 0.5 mg/dl (0.2-1.3); CALCIUM 9.1 mg/dl (8.4-10.2); CREATININE 0.8 mg/dl (0.44-1.00); MAGNESIUM 2.2 mg/dl (1.7-2.5); POTASSIUM 4.2 mmol/L (3.5-5.1); TOTAL PROTEIN 7.3 g/dl (6.1-8.1)
[2016-08-17 09:26] LABS: TOTAL IRON BINDING CAPACITY 208 ug/dl (241-421)
[2016-08-17] MEDS: SOD FERRIC GLUC COMPLX 125 MG in SOD CHLORIDE 0.9% 100 ML IVPB SCH (10:00)
[2016-08-17 13:55] VITALS: BP 113/53; PULSE 73; RESP 20
== END 2016-08-17 13:49 | disposition home health service (06) ==
LOC: INTOOBSV 15:11 → MS2 15:11 → UNDOADMOB 15:11 → MS2 16:52 → OBSVTOIN 08-15 10:41 → INTOOBSV 08-15 10:41 → UNDODISOB 08-17 13:49
PROVIDERS: ADMIT Family Medicine; ATTEND Family Medicine
DX: E86.0 Dehydration (principal); R19.7 Diarrhea, unspecified; K85.90 Acute pancreatitis without necrosis or infection, unspecified; I11.0 Hypertensive heart disease with heart failure; I50.9 Heart failure, unspecified; I25.119 Atherosclerotic heart disease of native coronary artery with unspecified angina pectoris; E78.00 Pure hypercholesterolemia, unspecified; F17.200 Nicotine dependence, unspecified, uncomplicated; K42.9 Umbilical hernia without obstruction or gangrene; N94.89 Other specified conditions associated with female genital organs and menstrual cycle; R11.2 Nausea with vomiting, unspecified; K05.10 Chronic gingivitis, plaque induced; N39.0 Urinary tract infection, site not specified; R32 Unspecified urinary incontinence; M19.90 Unspecified osteoarthritis, unspecified site; D63.8 Anemia in other chronic diseases classified elsewhere; M81.0 Age-related osteoporosis without current pathological fracture; M40.209 Unspecified kyphosis, site unspecified
CPT/HCPCS: 71010; 74176; 80053; 81001; 82150; 82247; 82248; 82550; 82553; 83540; 83690; 83735; 84443; 84484; 85025; 87086; 93005; 93971; 97110; 97116; 97162; 97530; C9113; G0378; J1956; J2543; J2916; J3475; J3480; J7040; 99217